=== PATIENT | female | born 1975 | race Caucasian/White ===

== ENCOUNTER 2016-10-24 09:59 | Observation (INO) | payer BC, MEDICAID ==
[~2016-10-24 09:59] MED LIST: Buffered Lidocaine 0.9% SYRIN* 5 ML/SYR SYRINGE INTRADERM ONE; Dexamethasone IV* 4 MG/ML 1 ML (4 MG) IV SLOW PU ONE; Famotidine IV* 10 MG/ML 2 ML (20 mg) IV ONE
[2016-10-24] MEDS ORDERED: Dexamethasone IV* 4 MG/ML 1 ML (4 MG) ONE (10:03)
[2016-10-24] MEDS ORDERED: Famotidine IV* 10 MG/ML 2 ML (20 mg) ONE (10:04)
[2016-10-24] MEDS ORDERED: ceFAZolin 2 GM PREMIX (*) 50 ML IVPB ONE (10:04)
[2016-10-24] MEDS ORDERED: Buffered Lidocaine 0.9% SYRIN* 5 ML/SYR SYRINGE ONE (10:04)
[2016-10-24] MEDS ORDERED: Lidocaine 1.5% EPI 1:200,000* 30 ML SDV ONE (10:10)
[2016-10-24] MEDS ORDERED: Bacitracin IV* 50,000 UNITS INJ ONE (10:10)
[2016-10-24] MEDS ORDERED: Thrombin 5,000 UNITS* 1 APPLIC KIT - topical use - TOPICAL ONE (10:10)
[2016-10-24] MEDS ORDERED: fentaNYL* 50 MCG/ML 2 ML VIAL (100 MCG VIAL) IV PRN (10:11)
[2016-10-24] MEDS ORDERED: HYDROcodone/ACETAMIN 5-325 MG* 1 TAB PO PRN ×3 (10:11→12:08)
[2016-10-24] MEDS ORDERED: PROCHLORPERAZINE INJ 5 MG/ML 2 ML VIAL IV PRN (10:11)
[2016-10-24] MEDS ORDERED: oxyCODONE/Acetamin 5/325 MG* TAB PO PRN ×2 (10:11→17:32)
[2016-10-24] MEDS ORDERED: Lidocaine 2% PF * 5 ML VIAL ONE (10:26)
[2016-10-24] MEDS ORDERED: Propofol* 10 MG/ML 20 ML BTL IV PUSH ONE (10:26)
[2016-10-24] MEDS ORDERED: fentaNYL* 50 MCG/ML 5 ML VIAL (250 MCG VIAL) ONE (10:26)
[2016-10-24] MEDS ORDERED: Midazolam* 1 MG/ML 5 ML VIAL (5 MG) ONE (10:26)
[2016-10-24] MEDS ORDERED: Rocuronium* 10 MG/ML VIAL ONE (10:28)
[2016-10-24 10:43] LABS: Anion Gap 4 mmol/L (2-11); BUN/Creatinine Ratio 17.5 (8-20); Blood Urea Nitrogen 14 mg/dL (6-24); CO2 Carbon Dioxide 27 mmol/L (22-32); Chloride 105 mmol/L (101-111); EGFR African American 102.7 (>60); EGFR Non-African American 79.9 (>60); Glucose 90 mg/dL (70-100); Potassium 3.8 mmol/L (3.5-5.0); Sodium 136 mmol/L (133-145)
[2016-10-24] MEDS ORDERED: Ondansetron INJ* 2 MG/ML VIAL ONE (11:38)
[2016-10-24] MEDS ORDERED: fentaNYL* 50 MCG/ML 2 ML VIAL (100 MCG VIAL) ONE (11:42)
[2016-10-24] MEDS ORDERED: Acetaminophen TAB* 325 MG PO PRN (12:02)
[2016-10-24] MEDS ORDERED: PROCHLORPERAZINE INJ 5 MG/ML 2 ML VIAL ONE (12:28)
--- NOTE | 2016-10-24 15:30 | RAD ---
INDICATION: Lumbar discectomy L5-S1 right. COMPARISON: Comparison is made with prior MRI of the lumbar spine from September 20, 2016. TECHNIQUE: A single crosstable lateral portable view of the lumbar spine was obtained in the operating room. FINDINGS: There are several surgical instruments which project posterior at the L5-S1 level. IMPRESSION: INTRAOPERATIVE CONTROL FILMS.
[2016-10-24] MEDS ORDERED: oxyCODONE TAB* 5 MG TAB PO PRN (17:29)
[2016-10-24] MEDS ORDERED: oxyCODONE/Acetamin 5/325 MG* TAB ONE (17:50)
[2016-10-24] MEDS: oxyCODONE/Acetamin 5/325 MG* TAB PO PRN ×2 (17:53→21:59)
[2016-10-24] MEDS: Ondansetron INJ* 2 MG/ML VIAL IV PRN (17:54)
[2016-10-25] MEDS: Ondansetron INJ* 2 MG/ML VIAL IV PRN (03:48)
[2016-10-25] MEDS: oxyCODONE/Acetamin 5/325 MG* TAB PO PRN ×2 (03:50→08:00)
--- NOTE | 2016-10-25 07:36 | PN ---
Progress Note - Progress Note Date of Service: 10/25/16 SOAP: Subjective: []POD # 1 C/O noise last night,little sleep Has been up ambulating Objective: []Neuro intact Assessment: []Satis post op course Plan: []D/C today D/C Instructions given
[2016-10-25 07:50] VITALS: BP 102/62
[2016-10-25] MEDS ORDERED: Omeprazole CAP* 20 MG PO SCH (09:00)
[2016-10-25] MEDS ORDERED: Levothyroxine TAB* 100 MCG TAB PO SCH (09:00)
--- NOTE | 2016-10-28 07:27 | DS ---
DISCHARGE SUMMARY: DATE OF ADMISSION: 10/24/16 DATE OF DISCHARGE: 10/25/16 PROVIDER: Dr. Mathis * (DICTATED BY YULISSA POON) DISCHARGE DIAGNOSES: 1. Herniated nucleus pulposus L5-S1 on the right. 2. Hypothyroidism. 3. Anxiety. SPECIAL PROCEDURES: Lumbar diskectomy at L5-S1 on the right. HOSPITAL COURSE: This 41-year-old female was seen in the office with a right- sided lumbar radiculopathy consistent with MRI findings of a herniated disk at L5-S1 on the right. She had failed to improve over the prior 2 to 3 months with conservative treatments and was admitted this time for elective surgical therapy. On the day of admission, she was taken to surgery, where under general anesthesia, a lumbar diskectomy at L5-S1 on the right operation was carried out. Postoperatively, she was feeling well. Pain was well controlled with oral pain medications. Preoperative right lower extremity pain and numbness was improving. She was ambulating independently. She was eating, drinking, and voiding without difficulty. On the first postoperative day, she was discharged home to the care of her family. DISCHARGE INSTRUCTIONS: Wound care and activity level were discussed with the patient and information was provided. DISCHARGE MEDICATION: Oxycodone/acetaminophen 5/325 mg 2 tabs by mouth every 4 hours as needed for pain. FOLLOWUP: This patient will be seen in office in 7 to 10 days for a followup and staple removal. YULISSA POON [id number]/[facility] #: [id number] GARICA
--- NOTE | 2016-10-30 13:29 | OP ---
DATE OF OPERATION: 10/24/16 - ROOM #331 DATE OF : 79 PRIMARY SURGEON: Dago Mathis MD INCOME TAX RETURN PREPARER: YULISSA Boggs ANESTHESIOLOGIST: Christos Velez MD ANESTHESIA: General. PRE-OP DIAGNOSIS: Herniated nucleus pulposus, L5-S1 on the right. POST-OP DIAGNOSIS: Herniated nucleus pulposus, L5-S1 on the right. OPERATIVE PROCEDURE: Lumbar diskectomy, L5-S1 on the right with microdissection. DESCRIPTION OF PROCEDURE: After satisfactory general anesthesia was obtained, the patient was placed on the operating table in the prone position with the chest supported on the Luisito frame and the back slightly flexed. The lumbar region was then clipped, prepped, and draped in a sterile manner for a lumbar laminectomy and a skin incision outlined from L5 to the sacrum. This incision was infiltrated with 1% Xylocaine with epinephrine; after which, it was turned down sharply to the level of the lumbar fascia. The fascia was divided along the spinous processes of L5 and the upper sacrum and the paraspinal musculature was stripped away from these posterior elements using the periosteal elevator and monopolar cautery. An intraoperative x-ray was obtained verifying proper interspace localization; after which, a decompression was carried out on the right side by removing the inferior aspect of the lamina and medial aspect of the facet complex with a combination of the Midas Alex drill and Kerrison rongeurs. This was carried superiorly until the attachment of the ligamentum flavum was taken down. The ligamentum flavum was then removed with a Kerrison as well. At this point of the procedure, the operating microscope was brought into the field and the remainder of the procedure was done under microscopic visualization. Projecting beneath the S1 nerve root was a subcapsular disk herniation. An opening was made into the posterior longitudinal ligament and multiple fragments of disk material were removed from beneath the S1 nerve root. The disk space itself was then cleared of any loose disk material using pituitary forceps and curettes. It was felt that a satisfactory decompression had been achieved. After assuring adequate hemostasis, the wound was thoroughly irrigated; after which, the fascia was reapproximated with 0 Vicryl suture and subcutaneous tissue was closed with 3-0 Vicryl suture and the skin closed with skin clips. The estimated blood loss was less than 50 cc and the final sponge, padding, and needle counts were correct. The patient was taken to the recovery room extubated and in stable condition. [id number]/[facility] #: [id number] [facility]
== END 2016-10-25 08:30 | disposition home or self-care (01) ==
LOC: OR 09:59 → SSU 13:39
PROVIDERS: ADMIT Neurological Surgery; ATTEND Neurological Surgery
DX: M51.16 Intervertebral disc disorders with radiculopathy, lumbar region (principal); E03.9 Hypothyroidism, unspecified; F41.9 Anxiety disorder, unspecified; Z79.899 Other long term (current) drug therapy; Z87.891 Personal history of nicotine dependence
CPT/HCPCS: 36415; 72100; 80048; 84702; 88304; 96374; A9270-GY; G0378; J0690; J0780; J1100; J2250; J2405; J2704; J3010

== ENCOUNTER 2016-12-08 10:53 | Emergency (ER) | payer BC, MEDICAID ==
[2016-12-08 12:15] VITALS: BP 124/92
--- NOTE | 2016-12-08 12:42 | UC ---
Respiratory Complaint HPI - HPI Summary HPI Summary: 41 yo female c/o sore throat, sinus congestion, cough progressively worrse since Sunday. ?fever. No n/v/d reported. No rash. - History of Current Complaint Chief Complaint: UCRespiratory Stated Complaint: SINUS,SORE THROAT Time Seen by Provider: 12/08/16 12:04 Hx Obtained From: Patient Hx Last Menstrual Period: 11/28 ?: No Severity Initially: Mild Severity Currently: Moderate - Allergies/Home Medications Allergies/Adverse Reactions: Allergies Allergy/AdvReac Type Severity Reaction Status Date / Time CI Pigment Blue 63 AdvReac Nausea And Verified 12/08/16 12:15 [From Cymbalta] Vomiting Clindamycin AdvReac Nausea And Verified 12/08/16 12:15 Vomiting Duloxetine [From Cymbalta] AdvReac Nausea And Verified 12/08/16 12:15 Vomiting Morphine AdvReac Agitation Verified 12/08/16 12:15 Penicillins [PCN] AdvReac Nausea And Verified 12/08/16 12:15 Vomiting Home Medications: Home Medications Phendimetrazine Tartrate 105 mg PO TID 12/08/16 [History Confirmed 12/08/16] PMH/Surg Hx/FS Hx/Imm Hx Previously Healthy: Yes - has had mononucleosis in the past Other History Of: Negative For: HIV, Hepatitis B, Hepatitis C, Anticoagulant Therapy - Surgical History Surgical History: Yes Surgery Procedure, Year, and Place: Sinus surgery X3 2014; back surgery 10/24/16 [facility]. Tear duct surgery. right wrist ganglion surgery x3. pilonidal cyst as a teen - Family History Known Family History: Positive: Hypertension Negative: Cardiac Disease, Diabetes - Social History Alcohol Use: Rare Substance Use Type: None Smoking Status (MU): Former Smoker Amount Used/How Often: 1/2 pack a day for When Did the Patient Quit Smoking/Using Tobacco: 2011 Review of Systems Constitutional: Fatigue Skin: Negative Eyes: Negative ENT: Sore Throat, Ear Ache, Nasal Discharge, Sinus Congestion Respiratory: Cough Cardiovascular: Negative Gastrointestinal: Negative Genitourinary: Negative Motor: Negative Neurovascular: Negative Musculoskeletal: Negative Neurological: Negative Psychological: Negative Is Patient Immunocompromised?: No All Other Systems Reviewed And Are Negative: Yes Physical Exam Triage Information Reviewed: Yes Appearance: Well-Nourished Vital Signs: Initial Vital Signs Temp 98.6 F 10/27/17 12:07 Pulse 80 12/08/16 12:07 Resp 20 12/08/16 12:07 BP 124/92 12/08/16 12:07 Pulse Ox 99 12/08/16 12:07 Vital Signs Reviewed: Yes Eye Exam: Normal ENT: Positive: Pharyngeal erythema - + pharyngeal erythema, sores to left tonsil. Uvula midline. Airway intact., TM dull - R payan, Left payan-white Neck exam: Other - +mild adenopathy. neck supple, no meningismus Neck: Positive: Supple Respiratory Exam: Other - + rhonchorus cough Respiratory: Positive: Chest non-tender, Lungs clear, Normal breath sounds, No respiratory distress, No accessory muscle use Cardiovascular Exam: Normal Cardiovascular: Positive: RRR, No Murmur, Pulses Normal, Brisk Capillary Refill Abdominal Exam: Normal Abdomen Description: Positive: Nontender Musculoskeletal Exam: Normal Neurological Exam: Normal Psychological Exam: Normal - conversing easily and appropriately Skin Exam: Normal UC Diagnostic Evaluation - Laboratory O2 Sat by Pulse Oximetry: 99 Respiratory Course/Dx - Course Course Of Treatment: Reviewed RST with pt (neg). Reviewed tx plan / coa. Questions as posed answered to the best of my ability. - Differential Dx/Diagnosis Provider Diagnoses: Sinusitis. Pharyngitis Discharge - Discharge Plan Condition: Stable Disposition: HOME Prescriptions: Albuterol HFA INHALER* [Ventolin HFA Inhaler*] 2 puff INH Q6H PRN #1 mdi PRN Reason: Wheezing DOXYcycline CAP(*) [DOXYcycline 100MG CAP(*)] 100 mg PO BID #20 cap Patient Education Materials: Antihistamine (By mouth), Antihistamine/ Decongestant (By mouth), Pharyngitis (ED), Sinusitis (ED) Referrals: Rei Gutiérrez MD [Primary Care Provider] - Additional Instructions: Seek medical attention for worse or new problems. Change your toothbrush and change your toothpaste once your symptoms improve. Drink plenty of fluids. Avoid prolonged, direct sun exposure while taking antibiotic. Consider Afrin nasal spray 15 minutes prior to flight landing and takeoff.
== END 2016-12-08 13:39 | disposition home or self-care (01) ==
LOC: UCCORT 10:53
DX: J32.9 Chronic sinusitis, unspecified (principal); J02.9 Acute pharyngitis, unspecified; Z88.0 Allergy status to penicillin; Z88.5 Allergy status to narcotic agent; Z88.8 Allergy status to other drugs, medicaments and biological substances; Z87.891 Personal history of nicotine dependence
CPT/HCPCS: 87651; 99212; G0463

== ENCOUNTER 2017-10-28 09:00 | Emergency (ER) | payer BC, MEDICAID ==
[2017-10-28 09:35] VITALS: BP 118/85
--- NOTE | 2017-10-28 09:48 | UC ---
Eye Complaint HPI - HPI Summary HPI Summary: WOKE UP THIS MORNING WITH BILATERAL ITCHY, RED SWOLLEN EYES, STATES SHE HAS BEEN CHANGING CARPET IN HER BEDROOM AND SHE IS ALLERGIC TO HER CROATIAN ABEBE' S HAIR. TODAY SHE HAD A LOT OF DISCHARGE ON BOTH EYES IN THE MORNING. DENIES CONTACT LENSE USE, VISUAL DISTURBANCE OR FOREIGN BODY SENSATION - History of Current Complaint Chief Complaint: UCEye Stated Complaint: BILATERAL EYE COMPLAINT Time Seen by Provider: 10/28/17 09:38 Hx Obtained From: Patient Hx Last Menstrual Period: ~12/02/16 ?: No Onset/Duration: Sudden Onset, Lasting Days Timing: Constant Severity Initially: Mild Severity Currently: Mild Pain Intensity: 0 Location of Injury: Conjunctiva Aggravating Factor(s): Nothing Alleviating Factor(s): Nothing Associated Signs And Symptoms: Positive: Drainage (Purulent) - Allergies/Home Medications Allergies/Adverse Reactions: Allergies Allergy/AdvReac Type Severity Reaction Status Date / Time clindamycin Allergy Nausea And Verified 10/28/17 09:35 Vomiting duloxetine [From Cymbalta] Allergy Nausea And Verified 10/28/17 09:35 Vomiting morphine Allergy Nausea And Verified 10/28/17 09:35 Vomiting Penicillins Allergy Nausea And Verified 10/28/17 09:35 Vomiting PMH/Surg Hx/FS Hx/Imm Hx Endocrine History: Hypothyroidism GI/ History: Gastroesophageal Reflux Other History Of: Negative For: HIV, Hepatitis B, Hepatitis C, Anticoagulant Therapy - Surgical History Surgical History: Yes Surgery Procedure, Year, and Place: Sinus surgery X3 2013; back surgery 10/24/16 [facility]. Tear duct surgery. right wrist ganglion surgery x3. pilonidal cyst as a teen - Family History Known Family History: Positive: Hypertension Negative: Cardiac Disease, Diabetes - Social History Alcohol Use: Rare Substance Use Type: None Smoking Status (MU): Former Smoker Amount Used/How Often: 1/2 pack a day for When Did the Patient Quit Smoking/Using Tobacco: 01/2012 - Immunization History Most Recent Influenza Vaccination: Not the 2016/2017 Season Review of Systems Eyes: Drainage, Eye Redness All Other Systems Reviewed And Are Negative: Yes Physical Exam Triage Information Reviewed: Yes Appearance: Well-Appearing, No Pain Distress, Well-Nourished Vital Signs: Initial Vital Signs Temp 99.0 F 10/28/17 09:29 Pulse 97 10/28/17 09:29 Resp 16 10/28/17 09:29 BP 118/85 10/28/17 09:29 Pulse Ox 98 10/28/17 09:29 Vital Signs Reviewed: Yes Eyes: Positive: Conjunctiva Inflamed, Other: - NO DISCHARGE, PRUDENCE, EOM WNL, EYELIDS ARE NORMAL ENT: Positive: Hearing grossly normal, Pharynx normal, TMs normal Neck exam: Normal Respiratory: Positive: Chest non-tender, Lungs clear, Normal breath sounds Cardiovascular: Positive: RRR, No Murmur, Pulses Normal, Brisk Capillary Refill Eye Complaint Course/Dx - Course Course Of Treatment: DISCUSSED WITH PATIENT USE OF STERILE NORMAL SALINE ON EYES TO CLEANSE THEM AND PATANOL EYE DROPS FOR ALLERGIC SYMPTOMS. PATIENT IS ADAMANT THAT IS "PINK EYE" AND WOULD LIKE TO HAVE PRESCRIPTION OF ANTIBIOTIC A BACK UP. POLYTRIM PRESCRIPTION SENT TO PHARMACY IF INITIAL TREATMENT FAILS. WILL FOLLOW UP WITH PRIMARY CARE IN ONE WEEK - Differential Dx/Diagnosis Provider Diagnoses: ALLERGIC CONJUNCTIVITIS Discharge - Sign-Out/Discharge Documenting (check all that apply): Patient Departure All imaging exams completed and their final reports reviewed: No Studies - Discharge Plan Condition: Stable Disposition: HOME Patient Education Materials: Conjunctivitis (ED), Olopatadine (Into the eye), Polymyxin B/Trimethoprim (Into the eye) Referrals: Rei Gutiérrez MD [Primary Care Provider] - - Billing Disposition and Condition Condition: STABLE Disposition: Home
== END 2017-10-28 10:07 | disposition home or self-care (01) ==
LOC: UCCORT 09:00
DX: H10.13 Acute atopic conjunctivitis, bilateral (principal); Z88.1 Allergy status to other antibiotic agents; Z88.5 Allergy status to narcotic agent; Z88.8 Allergy status to other drugs, medicaments and biological substances; Z88.0 Allergy status to penicillin; Z87.891 Personal history of nicotine dependence
CPT/HCPCS: 99212; G0463